=== PATIENT | male | born 1935 | race Caucasian/White ===

== ENCOUNTER → 2018-06-07 14:02 | Outpatient (CLI) | payer MEDICARE, BC, SELFPAY ==
--- NOTE | 2018-06-07 14:05 | MR_ITS ---
MR lumbar spine wo con, MR 3-d myelogram/MRCP HISTORY: PT states low back pain, RT leg pain, numbness and tingling. ITS.REASON: LOW BACK PAIN, LUMBAGO WITH RIGHT SCIATICA ORDERING PHYSICIAN: Yariel Irvin PATIENT AGE: 82 years Comparison: None TECHNIQUE: Standard multiplanar multiecho sequences are performed without contrast. 3-D MIP and myelographic images are also rendered and reviewed FINDINGS: There is normal alignment. The spinal cord ends at the T12-L1 level. There is heterogeneous T1 and T2 signal involving the vertebral bodies consistent with red marrow replacement as an incidental finding. T12-L1: Unremarkable. L1-L2: Degenerative disc disease with bulging disc and endplate hypertrophic change. Mild bilateral foraminal narrowing L2-L3: Degenerative disc disease with mild bulging disc along with facet and ligamentum flavum hypertrophy and mild right lateral recess narrowing with mild bilateral foraminal narrowing. L3-L4: Concentric bulging disc. There is facet and ligamentum flavum hypertrophic change. Canal stenosis is present along with severe bilateral lateral recess narrowing and left-sided foraminal narrowing. L4: Abnormal signal intensity involves the L4 vertebral body with extension into the right pedicle as well as the right superior and inferior facet of L4. This is hypointense on T1 and is hyperintense on the STIR images consistent with neoplasm. There is bowing of the posterior and superior aspect of the L4 vertebral body with suspected epidural extension anteriorly and on the right with cord compression. MRI with contrast may provide further evaluation for better evaluation of the nerve roots. There is compression fracture involving the superior aspect of the elbow for vertebral body with loss of height superiorly and anteriorly approximately 15-20%. L4-L5: Degenerative disc disease with bulging disc along with facet and ligamentum flavum hypertrophy. There is severe bilateral foraminal narrowing along the bilateral lateral recess narrowing. L5-S1: Degenerative disc disease with bulging disc with facet and ligamentum flavum hypertrophy IMPRESSION: 1. 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 There is infiltration of the L4 vertebral body and the right pedicle and right superior and inferior facet with extension into the epidural space anteriorly and mild bowing of the posterior superior aspect of L4. There is severe narrowing of the canal at this level along with right lateral recess narrowing. 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 2. Multilevel lumbar spondylosis with bulging disc and canal stenosis along with facet and ligamentum hypertrophy with lateral recess and foraminal narrowing. Please see above for detailed description at each level
== END ==
PROVIDERS: PCP Internal Medicine; Visit Provider Internal Medicine
DX: M54.5 Low back pain (principal); M54.32 Sciatica, left side; M54.31 Sciatica, right side
CPT/HCPCS: 72148; 76376